=== PATIENT | male | born 1995 | race Caucasian/White ===

== ENCOUNTER 2024-01-02 20:56 | Emergency (ER) | payer OTHER ==
[~2024-01-02] VITALS: Ht 180.3 cm; Wt 77.1 kg
[2024-01-02] MEDS ORDERED: TDAP [DIPH/PERTUSSIS/TET] 0.5 ML VIAL IM ONE (21:40)
[2024-01-02] MEDS: TDAP [DIPH/PERTUSSIS/TET] 0.5 ML VIAL IM ONE (21:42)
[2024-01-02 22:19] VITALS: BP 130/80; TEMP 98; O2SAT 99
== END 2024-01-02 22:20 | disposition home or self-care (01) ==
LOC: ER 21:04
DX: S01.81XA Laceration without foreign body of other part of head, initial encounter (principal); Z60.2 Problems related to living alone; W22.09XA Striking against other stationary object, initial encounter; Y93.89 Activity, other specified; Y92.098 Other place in other non-institutional residence as the place of occurrence of the external cause; Y99.8 Other external cause status
CPT/HCPCS: 90715